=== PATIENT | female | born 1975 | race Caucasian/White ===

== ENCOUNTER 2023-09-30 12:17 | Emergency (ER) | payer OTHER ==
[2023-09-30 12:44] VITALS: RESP 18; BMI 36.8
[2023-09-30 13:17] LABS: URINE APPEARANCE CLEAR; URINE BILIRUBIN NEGATIVE (NEGATIVE); URINE COLOR YELLOW; URINE GLUCOSE (UA) NEGATIVE (NEGATIVE); URINE KETONE NEGATIVE (NEGATIVE); URINE LEUK ESTERASE NEGATIVE (NEGATIVE); URINE NITRITE NEGATIVE (NEGATIVE); URINE PROTEIN NEGATIVE (NEGATIVE); URINE UROBILINOGEN 0.2 mg/dL (0.2-1.0)
[2023-09-30 13:18] LABS: BASO % 0.6 % (0-2.0); EOS % 1.5 % (0-4.5); HCG,QUALITATIVE URINE Negative; HEMATOCRIT 26.2 % (32.4-45.2); HEMOGLOBIN 7.8 GM/dL (10.7-15.3); LYMPH % 27.9 % (8-40); MCHC 29.7 g/dl (32.0-36.0); MEAN PLT VOLUME 6.9 fl (7.5-11.1); MONO % 6.1 % (3.8-10.2); NEUT % 63.9 % (42.8-82.8); PLATELET COUNT 508 10^3/uL (134-434); RBC 3.97 M/mm3 (3.60-5.2); RDW 17.3 % (11.6-15.6)
[2023-09-30 13:19] LABS: MCH 19.6 pg (25.7-33.7)
[2023-09-30 13:27] LABS: EPI CELLS 8 /uL (0-25.1); HYALINE CASTS 0 /uL (0-3.1); INR 1.05 (0.83-1.09); PROTHROMBIN TIME (PATIENT) 11.9 SEC (9.7-13.0); URINE RBC 8 /uL (0-23.9); URINE WBC 3 /uL (0-25.8)
[2023-09-30 13:28] LABS: URINE BACTERIA 14 /uL (0-1359)
[2023-09-30 13:30] LABS: ACTIVATED PTT 29.7 SECONDS (25.2-36.5)
[2023-09-30 13:46] LABS: POTASSIUM 3.7 mmol/L (3.5-5.1)
[2023-09-30 13:49] LABS: ALBUMIN 3.6 g/dl (3.4-5.0); BLOOD UREA NITROGEN 8.1 mg/dL (7-18)
[2023-09-30 13:53] LABS: BILIRUBIN,TOTAL 0.4 mg/dL (0.2-1); TOT PROT 7.9 g/dl (6.4-8.2)
[2023-09-30 13:55] LABS: CREATININE 0.7 mg/dL (0.55-1.3)
[2023-09-30 17:39] VITALS: BP 117/70; PULSE 78; TEMP 98.1
== END 2023-09-30 18:08 | disposition left against medical advice (07) ==
LOC: JER 12:17
DX: N93.8 Other specified abnormal uterine and vaginal bleeding (principal); D64.9 Anemia, unspecified; N83.209 Unspecified ovarian cyst, unspecified side; R53.1 Weakness
CPT/HCPCS: 36415; 76830-TC; 80053; 81003; 84484; 84703; 85025; 85610; 85730; 86900; 86922; 87086; 93005; 93010; 99285-25